=== PATIENT | female | born 1995 | race Caucasian/White ===

== ENCOUNTER 2021-12-31 01:22 | Emergency (ER) | payer BC ==
[~2021-12-31] VITALS: Ht 167.6 cm; Wt 56.7 kg
[2021-12-31] MEDS ORDERED: MORGIDOX100 MG PO (02:10)
[2021-12-31] MEDS ORDERED: MUPIROCIN15 GM TOP (02:10)
== END 2021-12-31 02:27 ==
LOC: ER 01:22
DX: L03.116 Cellulitis of left lower limb (principal); Z88.2 Allergy status to sulfonamides